=== PATIENT | female | born 1970 | race Caucasian/White ===

== ENCOUNTER 2021-03-28 11:09 | Day surgery (SDC) | payer OTHER ==
[2021-03-20 14:39] VITALS: BMI 25.7
[2021-03-28] MEDS ORDERED: ONDANSETRON 4 MG/2 ML VIAL ONE (11:21)
[2021-03-28] MEDS ORDERED: KETOROLAC TROMETHAMINE 30 MG/1 ML VIAL ONE (11:21)
[2021-03-28] MEDS ORDERED: ceFAZolin SODIUM 1 GM VIAL ONE (11:21)
[2021-03-28] MEDS ORDERED: DEXAMETHASONE SOD PHOSPHATE 4 MG/1 ML VIAL ONE (11:21)
[2021-03-28] MEDS ORDERED: LIDOCAINE HCL/PF 2% SDV 5ML VIAL ONE (11:21)
[2021-03-28] MEDS ORDERED: PROPOFOL 20 ML ONE ×3 (11:22)
[2021-03-28] MEDS ORDERED: MIDAZOLAM HCL 2 MG/2 ML SINGLE DOSE VIAL ONE (12:43)
[2021-03-28] MEDS ORDERED: ROPIVACAINE HCL 0.5% 30ML VIAL ONE (12:43)
[2021-03-28] MEDS ORDERED: ceFAZolin SODIUM 1 GM VIAL IVPB ONE (13:18)
[2021-03-28 14:52] VITALS: TEMP 97.8
[2021-03-28 15:45] VITALS: BP 105/74; PULSE 68
== END 2021-03-28 15:40 | disposition home or self-care (01) ==
LOC: FASU 11:09
PROVIDERS: ATTEND Orthopaedic Surgery Hand Surgery
PROC: 0LX80ZZ Transfer Left Hand Tendon, Open Approach (ICD-10-PCS; principal; 2021-03-28 13:24)
PROC: 0LB60ZZ Excision of Left Lower Arm and Wrist Tendon, Open Approach (ICD-10-PCS; 2021-03-28 13:24)
DX: M18.12 Unilateral primary osteoarthritis of first carpometacarpal joint, left hand (principal); M67.432 Ganglion, left wrist